=== PATIENT | male | born 1975 | race Caucasian/White ===

== ENCOUNTER 2017-05-16 12:48 | Emergency (ER) | payer OTHER ==
[~2017-05-16] VITALS: Ht 167.6 cm; Wt 88.9 kg
[~2017-05-16 12:48] MED LIST: ASPIR-LOW81 MG PO; BIOTIN 800 MCG1 EACH PO; FISH OIL300 MG PO; GINKGO BILOBA40 MG PO; GLUCOSAMINE-CH1 EA18 PO; HYDROCHLOROTHIA25 MG PO; MULTI-DAY VITA1 EACH PO; TUMERSAID TABL1 EACH PO; TURMERIC500 MG PO; ZYRTEC10 M3 PO
[2017-05-16 14:23] LABS: HEMATOCRIT 45.5 % (38.0-50.0); HEMOGLOBIN 16.1 G/DL (12.5-16.6); MCH 31.1 PG (29.0-34.0); MCHC 35.4 G/DL (30.0-36.0); PLATELET COUNT 348 K/uL (156-360); RBC DIS.WIDTH-CV 13.2 % (11.8-14.6); RBC DIS.WIDTH-SD 42.7 % (39-53); RED BLOOD COUNT 5.17 M/uL (4.00-5.50); WHITE BLOOD COUNT 17.7 K/uL (4.1-10.2)
[2017-05-16 14:31] LABS: CHLORIDE 106 mEq/L (99-109); POTASSIUM 4.2 mEq/L (3.7-5.4); SODIUM 143 mEq/L (136-147)
[2017-05-16 14:33] LABS: GLUCOSE 111 mg/dL (70-99); TOTAL PROTEIN 8.5 g/dL (6.4-8.3)
[2017-05-16 14:35] LABS: TOTAL BILIRUBIN 0.8 mg/dL (0.0-1.0)
[2017-05-16 14:36] LABS: ALKALINE PHOSPHATASE 74 IU/L (3-129)
[2017-05-16 14:37] LABS: CREATININE 1.3 mg/dL (0.6-1.3); GFR ESTIMATE (CALCULATED) > 59 mL/min/ (58.99-99999)
[2017-05-16 14:38] LABS: UREA NITROGEN (BUN) 15 mg/dL (9-23)
[2017-05-16 14:39] LABS: AST (GOT) 30 IU/L (2-34)
[2017-05-16 14:40] LABS: ALT (GPT) 38 IU/L (3-49)
[2017-05-16] MEDS ORDERED: FLOMAX0.4 MG PO ×2 (14:53→15:18)
[2017-05-16] MEDS ORDERED: ZOFRAN ODT8 MG PO ×2 (14:53→15:18)
[2017-05-16] MEDS ORDERED: NORCO 5/3251 TABLET PO ×2 (14:53→15:18)
[2017-05-16 15:22] LABS: APPEARANCE CLOUDY ((CLEAR)); BILIRUBIN NEGATIVE; BLOOD LARGE; COLOR AMBER ((YELLOW)); GLUCOSE (STRIP) NEGATIVE; KETONES 5; LEUKOCYTES NEGATIVE; NITRITE NEGATIVE; PROTEIN (STRIP) >=500; SPECIFIC GRAVITY 1.029 (1.000-1.030); UROBILINOGEN 0.2 MG/DL (0.2-1.0)
[2017-05-16 15:30] VITALS: BP 172/89
[2017-05-16 15:40] LABS: EPITHELIAL CELLS NONE SEEN /HPF; MUCUS NONE SEEN /LPF; RED BLOOD CELLS TNTC /HPF (0-5); WHITE BLOOD CELLS NONE SEEN /HPF (0-5)
[2017-05-16 15:41] LABS: BACTERIA RARE /HPF; UCUL ADDED? YES
== END 2017-05-16 15:32 | disposition home or self-care (01) ==
LOC: EME 12:48
PROVIDERS: Nurse Practitioner Family
DX: N13.2 Hydronephrosis with renal and ureteral calculous obstruction (principal); K76.0 Fatty (change of) liver, not elsewhere classified
CPT/HCPCS: 74176; 80053; 81003; 85027; 87086; 99281; 99284

== ENCOUNTER → 2017-07-15 | Outpatient (CLI) | payer OTHER ==
[~2017-07-15] MED LIST changes: +FLOMAX0.4 MG PO; -HYDROCHLOROTHIA25 MG PO; +HYDROCHLOROTHIA50 MG PO; +NORCO 5/3251 TABLET PO; +ZOFRAN ODT8 MG PO; +ZOFRAN8 MG PO; +[UNRECOGNIZED DRUG - REMARK] PO
== END | disposition home or self-care (01) ==
LOC: CDC 11:51
DX: Z01.810 Encounter for preprocedural cardiovascular examination (principal)
CPT/HCPCS: 93000

== ENCOUNTER 2017-07-21 07:24 | Day surgery (SDC) | payer OTHER ==
[~2017-07-21] VITALS: Ht 167.6 cm; Wt 88.5 kg
[2017-07-21 08:37] VITALS: BP 125/72
[2017-07-21 11:18] VITALS: BP 169/89
[2017-07-21 12:10] VITALS: BP 145/79
[2017-07-21 13:05] VITALS: BP 156/87
== END 2017-07-21 13:17 | disposition home or self-care (01) ==
LOC: SDC 07:24
DX: N20.1 Calculus of ureter (principal); Z87.442 Personal history of urinary calculi
CPT/HCPCS: 74018; C1758; C2625; J0690; J2250; J3010